=== PATIENT | male | born 1990 | race African-American/Black ===

== ENCOUNTER 2017-10-12 00:45 | Emergency (ER) | payer OTHER ==
[~2017-10-12] VITALS: Ht 167.6 cm; Wt 90.7 kg
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
[2017-10-12] MEDS ORDERED: ALBUTEROL FS 2.5 MG/0.5 ML VIAL.NEB ONE (01:38)
[2017-10-12] MEDS ORDERED: LIDOCAINE HCL/MPF 1% 30 ML VIAL IJ ONE (01:53)
--- NOTE | 2017-10-12 01:57 | NUR ---
Dr Tavarez at bedside to suture laceration.
--- NOTE | 2017-10-12 02:27 | NUR ---
Dressing intact, clean and dry. Patient discharged to home in stable condition. Written and verbal after care instructions given. Patient verbalizes understanding of instruction. Patient is ambulatory with steady gait, no further complaints.
[2017-10-12 02:28] VITALS: BP 155/85
== END 2017-10-12 02:28 | disposition home or self-care (01) ==
LOC: ER 00:48
DX: S01.511A Laceration without foreign body of lip, initial encounter (principal); Y04.0XXA Assault by unarmed brawl or fight, initial encounter; Y93.89 Activity, other specified; Y92.89 Other specified places as the place of occurrence of the external cause; Y99.8 Other external cause status
CPT/HCPCS: 12011; 70486; 99284; A4606; A6402 ×2; J3490; Z7610

== ENCOUNTER 2017-10-20 16:25 | Emergency (ER) | payer SELFPAY ==
[~2017-10-20] VITALS: Ht 170.2 cm; Wt 90.7 kg
[2017-10-20 16:33] VITALS: BP 106/65
== END 2017-10-20 16:55 | disposition home or self-care (01) ==
LOC: ER 16:30
DX: S01.511D Laceration without foreign body of lip, subsequent encounter (principal); Z48.02 Encounter for removal of sutures; X58.XXXD Exposure to other specified factors, subsequent encounter
CPT/HCPCS: 99281; A4606; Z7610; Z7502